=== PATIENT | female | born 1935 | race Caucasian/White ===

== ENCOUNTER → 2017-03-21 | Outpatient (CLI) | payer MEDICARE, OTHER ==
[~2017-03-21] MED LIST: ADVAIR 2501 DISK W/D PO; ALBUTEROL17 GM INH; ASPIRIN81 M1 PO; CARDIZEM CD PO; CLONIDINE PO; FAMOTIDINE PO; LASIX PO; LOPRESSOR PO; MEVACOR PO; PHENERGAN PO; PREDNISONE PO; VASOTEC PO; WALMART PHARMACY; ZITHROMAX PO; ZITHROMAX1 G/PKT PO; ZOCOR PO; ZYLOPRIM100 MG DOB
[2017-03-21 15:40] LABS: BASOPHIL# 0.1 X10e3 (0-0.3); BASOPHIL% 0.5 % (0-2.5); EOSINOPHIL% 0.2 % (0.0-7.0); HEMATOCRIT 26.7 % (35.0-45.0); LYMPHOCYTE# 1.8 X10e3 (1.0-3.5); LYMPHOCYTE% 16.7 % (17.0-45.0); MEAN CELL VOLUME 95.5 FL (83-96); MEAN CORPUSCULAR HEMOGLOBIN 32.2 PG (28-34); MEAN CORPUSCULAR HGB CONC 33.7 g/dL (30-36); NEUTROPHIL# 6.8 X10e3 (1.5-7.1); NEUTROPHIL% 63.6 % (40-75); PLATELET COUNT 158 X10e3 (140-420); RED BLOOD COUNT 2.79 X10e (3.90-5.30); RED CELL DISTRIBUTION WIDTH 16.8 % (11.0-15.5); WHITE BLOOD COUNT 10.7 X10e3 (4.0-10.5)
[2017-03-21 15:41] LABS: DIFF IND NO
[2017-03-21 16:01] LABS: ALBUMIN SERUM 3.7 g/dL (3.5-5.0); BILIRUBIN,TOTAL 0.4 mg/dL (0.2-2.0); BUN/CREATININE RATIO 16.33; GLOM FILT RATE Estimated 13.8 mL/min (>60); PHOSPHOROUS 4.3 mg/dL (2.5-4.6); POTASSIUM 4.9 mmol/L (3.5-5.1); URIC ACID 4.8 mg/dL (2.6-7.2)
[2017-03-22 16:40] LABS: CALCIUM (PTHINTACT) 9.4 mg/dL (8.6-10.4)
== END | disposition home or self-care (01) ==
LOC: CLAB 15:07
PROVIDERS: Internal Medicine Nephrology
DX: N18.4 Chronic kidney disease, stage 4 (severe) (principal)
CPT/HCPCS: 36415; 80053; 82310; 83970; 84100; 84550; 85025